=== PATIENT | male | born 1985 | race Caucasian/White ===

== ENCOUNTER 2021-01-05 16:34 | Emergency (ER) | payer OTHER ==
[~2021-01-05] VITALS: Ht 170.2 cm; Wt 72.6 kg
== END 2021-01-05 17:32 | disposition home or self-care (01) ==
LOC: ED 16:34
DX: S01.01XA Laceration without foreign body of scalp, initial encounter (principal); B35.3 Tinea pedis; Z23 Encounter for immunization; W22.8XXA Striking against or struck by other objects, initial encounter
CPT/HCPCS: 90471; 90715; 99282-25